=== PATIENT | male | born 1980 | race Caucasian/White ===

== ENCOUNTER 2022-12-08 21:17 | Emergency (ER) | payer MEDICAID ==
[2022-12-08 21:28] VITALS: BP 116/84; PULSE 62; RESP 18; TEMP 98; O2SAT 100
== END 2022-12-08 23:36 ==
LOC: ER 21:18
DX: M79.672 Pain in left foot (principal); F17.200 Nicotine dependence, unspecified, uncomplicated
CPT/HCPCS: 99283

== ENCOUNTER 2024-11-28 04:46 | Emergency (ER) | payer MEDICAID ==
[~2024-11-28] VITALS: Ht 182.9 cm; Wt 72.7 kg
[2024-11-28 04:52] VITALS: TEMP 98.2
--- NOTE | 2024-11-28 09:07 | Physician Documentation ---
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 He is a current smoker and had a recent contact with a patient diagnosed with pneumonia. He presents with left facial pain and sweling that began yesterday The swelling extends from the upper jaw/left face up to the preauricular buccal region.. Additionally, he reports productive cough associated with fever and chills. History Of: no pertinent history Worsens With: chewing Analgesics: not used Associated Symptoms: Reports: fever, chills, earache Medication Reconciliation Allergies: Coded Allergies: No Known Allergies (Unverified , 11/28/24) Scheduled Amox Tr/Potassium Clavulanate 875/125 MG (Augmentin 875/125 MG), 1 TAB PO BID Physical Exam Vital Signs: Temperature: 98.2, Heart Rate: 71, Respiratory Rate: 16, BP: 119/79, Pulse Oximetry: 100, Weight: 72.700 Oxygen Flow Rate: 0 General Appearance: alert, mild distress EENT General: normal ENT inspection Mouth/Throat: dental tenderness, maxillary swelling Palate: normal inspection Face: swelling, tender Respiratory: lungs clear Chest: no accessory muscle use Cardiovascular: normal peripheral pulses, regular rate, rhythm, no edema, no gallop, no JVD, no murmur Gastrointestinal: normal palpation, non-tender, bowels sounds present Skin: normal color, warm/dry Lymphatic: no adenopathy Neurologic: oriented x4 Psychiatric: normal mood/affect Procedures Procedures Peridontal abscess Incission and drainage: The area was prepared and draped in the usual, sterile manner. The site was anesthetized with 1% lidocaine with epinephrine. A linear incision along the local gum lines was made and the purulent material expressed. The abcess was explored thoroughly and sequestered pockets were opened. Bleeding was minimal. The patient tolerated the procedure well without complications. Standard post- procedure care is explained and return precautions are given. I & D Procedure : Anesthesia: Lidocaine Blade Size: 11 Incision: pus drained Progress Results/Orders Reviewed/noted all lab results: Yes Results/Orders Medications Received in ER Medications (Trade) Dose Ordered Sig/Gregory Route PRN Reason Start Time Stop Time Status Last Admin Dose Admin (morphine inj.) 1 mg ONCE ONCE IV 11/28/24 08:45 11/28/24 09:21 DC 11/28/24 09:17 1 MG Sodium Chloride 1,000 ml @ 1,000 mls/hr ONCE ONCE IV 11/28/24 08:45 11/28/24 09:44 DC 11/28/24 09:16 1,000 MLS/HR Ampicillin Sodium/ Sulbactam Sodium 100 ml @ 200 mls/hr Q6H IV 11/28/24 09:00 11/28/24 11:36 DC 11/28/24 09:43 200 MLS/HR (probenecid tablet) 500 mg ONCE ONCE PO 11/28/24 09:00 11/28/24 09:03 DC 11/28/24 09:43 500 MG (Decadron 10mg/ ml inj) 10 mg ONCE STAT IV 11/28/24 08:58 11/28/24 09:03 DC 11/28/24 09:17 10 MG (Toradol injection) 15 mg ONCE ONCE IV 11/28/24 09:20 11/28/24 09:21 DC 11/28/24 10:07 15 MG (fentaNYL 0.05 MG/ML syringe) 50 mcg ONCE ONCE IV 11/28/24 09:20 11/28/24 09:23 DC 11/28/24 10:07 50 MCG Vital Signs 11/28/24 11/28/24 11/28/24 11/28/24 04:52 08:42 08:46 09:17 Temp 98.2 Pulse 92 71 Resp 18 16 16 16 B/P (MAP) 133/86 119/79 (92) Pulse Ox 99 100 O2 Flow Rate 0 0 11/28/24 11/28/24 11/28/24 11/28/24 10:07 10:07 10:30 11:24 Pulse 87 80 Resp 16 16 16 18 B/P (MAP) 113/74 (87) 124/82 Pulse Ox 99 99 O2 Flow Rate 0 Laboratory Tests Test 11/28/24 09:10 White Blood Count 13.8 H Red Blood Count 4.63 L Hemoglobin 13.7 L Hematocrit 40.8 L Mean Corpuscular Volume 88.3 Mean Corpuscular Hemoglobin 29.6 Mean Corpuscular Hemoglobin Concent 33.5 Red Cell Distribution Width 14.1 Platelet Count 313 Mean Platelet Volume 7.6 Neutrophils (%) (Auto) 75.1 H Lymphocytes (%) (Auto) 13.3 L Monocytes (%) (Auto) 9.1 Eosinophils (%) (Auto) 2.0 Basophils (%) (Auto) 0.5 Neutrophils # (Auto) 10.4 H Lymphocytes # (Auto) 1.8 Monocytes # (Auto) 1.3 H Eosinophils # (Auto) 0.3 Basophils # (Auto) 0.1 CBC Comment Sodium Level 135 Potassium Level 3.7 Chloride Level 100 Carbon Dioxide Level 27.7 Anion Gap 7 L Blood Urea Nitrogen 8 Creatinine 0.84 Estimated GFR/1.73 m2 > 90 BUN/Creatinine Ratio 9.5 L Glucose Level 103 Calcium Level 9.3 Albumin 3.3 L Procalcitonin 0.10 Chemistry Comments EKG/XRAY/CT/US/VASC/MRI Chest X-Ray : Additional Comments EXAM: DI CHEST,SINGLE VIEW Indication: productive cough, fever Technique: Single frontal view of the chest was obtained Comparison: None FINDINGS: Lines and Tubes: None Lungs: No focal consolidation. Pleura: No effusion. No pneumothorax. Cardiomediastinal contours: Unremarkable Bones: No acute osseous abnormality. IMPRESSION: No acute cardiopulmonary disease. Reviewed by myself. Medical Decision Making Findings Patient has left sided facial swelling; extending from maxilary regional to periauricular, periorbital region. left buccal region is extremely tender and indurated on palpation. Patient less cooperative during exam because of pain. CBC, BMP, CXR, procal ordered. While waiting for the lab work, we will give him Abx (Unasyn, probinicide) and pain management with morphine.Also, decadran 10 mg iv for swelling. Modest leukocytosis on CBC. Procal slightly elevated. CXR no significant findings. Pain controlled. I&D performed, purulent discharged drained. Differential Dx:Considerations: Include: Facial Cellulitis, Periapical abscess, Peridontal abscess, Pulpitis, Tooth avulsion, Tooth eruption, Tooth Fracture Additional Comment Most likely peridontal abscess. Departure Time of Disposition: 11:12 Disposition: 01 HOME / SELF CARE / HOMELESS Impression: Primary Impression: Dental abscess Discharge Instructions: Abscess, Dental Additional Instructions: Follow up with a dentist as soon as possible, return for significant worsening of your symptoms. Take the Augmentin as prescribed. Referrals: NO PRIMARY CARE PROVIDER (PCP) Prescriptions Amox Tr/Potassium Clavulanate 875/125 MG (Augmentin 875/125 MG) 875 Mg-125 Mg Tablet 1 TAB PO BID, #20 TAB Prov: GABE JONES MD 11/28/24 Signature Scribe Signature: -Scribed for Gabe Jones MD by Kennedi Brown . 11/28/24 12:31 Attestation: - ANNI JUAREZ, RES Nov 28, 2024 09:07 GABE JONES MD Nov 28, 2024 11:12 KENNEDI ALARCON Nov 28, 2024 12:31
--- NOTE | 2024-11-28 09:13 | RADIOLOGY REPORT ---
EXAM: DI CHEST,SINGLE VIEW Indication: productive cough, fever Technique: Single frontal view of the chest was obtained Comparison: None FINDINGS: Lines and Tubes: None Lungs: No focal consolidation. Pleura: No effusion. No pneumothorax. Cardiomediastinal contours: Unremarkable Bones: No acute osseous abnormality. IMPRESSION: No acute cardiopulmonary disease.
[2024-11-28] MEDS: normal saline 1000ml 1,000 ML IV ONE (09:16)
[2024-11-28] MEDS: dexamethasone sod phosphate 10mg/ml inj IV STA (09:17)
[2024-11-28 09:28] LABS: MEAN PLATELET VOLUME 7.6 FL (7.4-10.4); RED CELL DISTRIBUTION WIDTH 14.1 % (11.5-14.5)
[2024-11-28 09:40] LABS: CREATININE 0.84 MG/DL (0.60-1.10); TOTAL CARBON DIOXIDE 27.7 MMOL/L (24-32); eCRCL 114 ML/MIN; eGFR > 90 ML/MIN
[2024-11-28] MEDS: probenecid 500mg tablet PO ONE (09:43)
[2024-11-28] MEDS: ampicillin/sulbac 3gm/NS 100ml 100 ML IV SCH (09:43)
[2024-11-28] MEDS: ketorolac trometh 15mg/ml vial 15 MG/ML ML IV ONE (10:07)
[2024-11-28] MEDS: fentaNYL/PF 50MCG/1 ML 2ML syringe IV ONE (10:07)
[2024-11-28] MEDS: LIDOcaine 1% W/epiNEPHrine 1:100,000 20ml vial IJ ONE (10:11)
[2024-11-28] MEDS ORDERED: AMOX-580 PO (11:11)
[2024-11-28 11:24] VITALS: BP 124/82; PULSE 80; RESP 18; O2SAT 99
== END 2024-11-28 11:35 | disposition home or self-care (01) ==
LOC: ER 04:47
DX: K04.7 Periapical abscess without sinus (principal); F17.200 Nicotine dependence, unspecified, uncomplicated
CPT/HCPCS: 36415; 41800; 71045; 80048; 84145; 85025; 96365; 96375; 99284; J0295; J1100; J1885; J2270; J3010; J7030